=== PATIENT | male | born 1975 | race African-American/Black ===

== ENCOUNTER 2016-11-06 14:46 | Emergency (ER) ==
[2016-11-06 14:50] VITALS: BP 162/108; TEMP 98.2; BMI 32.3
--- NOTE | 2016-11-06 15:03 | ED.PDOC ---
General ED Provider: Dr. ALBIN TRAN Chief Complaint: Non-specific Complaint Stated Complaint: ABSCESS SCALP Time Seen by Physician: 14:50 Mode of Arrival: Walk-In Information Source: Patient Exam Limitations: No limitations Primary Care Provider: GARFIELD GILBERT Nursing and Triage Documentation Reviewed and Agree: Yes Skin Complaint Exam - Skin/Soft Tissue Complaint/Exam Symptoms Are: Still present Initial Severity: Moderate Character: Reports: Raised, Painful Aggravating: Reports: None Alleviating: Reports: None Associated Signs and Symptoms: Denies: Fever, Chills, Itching, Drainage, Bruising, Tenderness, Red streaks, Joint swelling Related History: Reports: Similar episode Related Surgical History: Reports: None Recent Exposure to Others w/Similar Symptoms: No Differential Diagnoses: Abscess Review of Systems - Review Of Systems Constitutional: Reports: No symptoms Eyes: Reports: No symptoms Ears, Nose, Mouth, Throat: Reports: No symptoms Respiratory: Reports: No symptoms Cardiac: Reports: No symptoms GI: Reports: No symptoms : Reports: No symptoms Musculoskeletal: Reports: No symptoms Skin: Reports: Other (ABSCESS SEE PHOTO) Neurological: Reports: No symptoms Endocrine: Reports: No symptoms Hematologic/Lymphatic: Reports: No symptoms All Other Systems: Reviewed and Negative Past Medical History - Past Medical History Previously Healthy: Yes Endocrine: Reports: None Cardiovascular: Reports: None Respiratory: Reports: None Hematological: Reports: None Gastrointestinal: Reports: None Genitourinary: Reports: None Neuro/Psych: Reports: None Musculoskeletal: Reports: None Cancer: Reports: None - Surgical History General Surgical History: Reports: None - Family History Family History: Reports: None - Social History Smoking Status: Current every day smoker Hx Substance Use: No Alcohol Screening: None Physical Exam - Physical Exam Appearance: Well-appearing, No pain distress, Well-nourished Eyes: BLANCA, EOMI, Conjunctiva clear ENT: Ears normal, Nose normal, Oropharynx normal Respiratory: Airway patent, Breath sounds clear, Breath sounds equal, Respirations nonlabored Cardiovascular: RRR, Pulses normal, No rub, No murmur GI/: Soft, Nontender, No masses, Bowel sounds normal, No Organomegaly Musculoskeletal: Normal strength, ROM intact, No edema, No calf tenderness Skin: Warm, Dry (4MM ABSCESS POSTERIOR SCALP) Neurological: Sensation intact, Motor intact, Reflexes intact, Cranial nerves intact, Alert, Oriented Psychiatric: Affect appropriate, Mood appropriate Critical Care Note - Critical Care Note Total Time (mins): 0 Course - Course Vital Signs: Temp Pulse Resp BP Pulse Ox 11/06/16 14:46 98.2 F 102 H 20 162/108 H 97 Departure - Departure Time of Disposition: 15:02 (PHOTO SUBMITTED ) Disposition: HOME SELF-CARE Discharge Problem: Abscess Instructions: Abscess (ED) Condition: Good Pt referred to PMD for follow-up: Yes Allergies/Adverse Reactions: Allergies No Known Allergies Allergy (Verified 11/06/16 14:50) Home Medications: Ambulatory Orders 1 [No Reported Medications] 05/19/13
== END 2016-11-06 15:17 | disposition home or self-care (01) ==
LOC: ED 14:46
DX: L02.811 Cutaneous abscess of head [any part, except face] (principal); F17.210 Nicotine dependence, cigarettes, uncomplicated
CPT/HCPCS: 99283

== ENCOUNTER 2016-12-25 17:10 | Emergency (ER) ==
[2016-12-25 17:14] VITALS: BP 154/81; TEMP 99.1; BMI 33.5
--- NOTE | 2016-12-25 17:36 | ED.PDOC ---
General ED Provider: Dr. ALBIN TRAN Chief Complaint: Abscess Stated Complaint: abscess left medial tigh Time Seen by Physician: 17:34 (seen with marimar at all times ) Information Source: Patient Exam Limitations: No limitations Primary Care Provider: GARFIELD GILBERT Nursing and Triage Documentation Reviewed and Agree: Yes Skin Complaint Exam - Skin/Soft Tissue Complaint/Exam Onset/Duration: 4 days Symptoms Are: Still present Timing: Constant Initial Severity: Severe Current Severity: Severe Character: Reports: Swelling, Raised, Painful Aggravating: Reports: Touch Alleviating: Reports: None Associated Signs and Symptoms: Reports: Tenderness. Denies: Fever, Chills, Itching, Drainage, Bruising, Red streaks, Joint swelling Related Surgical History: Reports: None Recent Exposure to Others w/Similar Symptoms: No Skin Findings: Present: Pustules Joint Tenderness Present: No Differential Diagnoses: Abscess, MRSA, VRE Review of Systems - Review Of Systems Constitutional: Reports: No symptoms Eyes: Reports: No symptoms Ears, Nose, Mouth, Throat: Reports: No symptoms Respiratory: Reports: No symptoms Cardiac: Reports: No symptoms GI: Reports: No symptoms : Reports: No symptoms Musculoskeletal: Reports: No symptoms Skin: Reports: Other (abscess ) Neurological: Reports: No symptoms Endocrine: Reports: No symptoms Hematologic/Lymphatic: Reports: No symptoms All Other Systems: Reviewed and Negative Past Medical History - Past Medical History Previously Healthy: Yes Endocrine: Reports: None Cardiovascular: Reports: None Respiratory: Reports: None Hematological: Reports: None Gastrointestinal: Reports: None Genitourinary: Reports: None Neuro/Psych: Reports: None Musculoskeletal: Reports: None Cancer: Reports: None - Surgical History General Surgical History: Reports: None - Family History Family History: Reports: None - Social History Smoking Status: Current every day smoker Hx Substance Use: No Alcohol Screening: None - Immunizations Tetanus Shot up to Date: Yes (less than 5 years.) Physical Exam - Physical Exam Appearance: Well-appearing Eyes: BLANCA, EOMI, Conjunctiva clear ENT: Ears normal, Nose normal, Oropharynx normal Respiratory: Airway patent, Breath sounds clear, Breath sounds equal, Respirations nonlabored Cardiovascular: RRR, Pulses normal, No rub, No murmur GI/: Soft, Nontender, No masses, Bowel sounds normal, No Organomegaly Musculoskeletal: Normal strength, ROM intact, No edema, No calf tenderness Skin: Warm, Dry ( abscess medial upper tigh PLEASE SEE SUBMITTED PHOTOS) Neurological: Sensation intact, Motor intact, Reflexes intact, Cranial nerves intact, Alert, Oriented Psychiatric: Affect appropriate, Mood appropriate Critical Care Note - Critical Care Note Total Time (mins): 0 Course - Course Vital Signs: Temp Pulse Resp BP Pulse Ox 12/25/16 17:10 99.1 F 113 H 16 154/81 H 98 Departure - Departure Time of Disposition: 17:37 Disposition: TSF SHORT-TRM HOSP Discharge Problem: Abscess Instructions: Abscess (ED) Condition: Good Pt referred to PMD for follow-up: Yes Additional Instructions: Please call your Family Physician as soon as possible to schedule a follow-up appointment. Allergies/Adverse Reactions: Allergies No Known Allergies Allergy (Verified 12/25/16 17:14) Home Medications: Ambulatory Orders 1 [No Reported Medications] 05/19/13 Disposition Discussed With: Patient
== END 2016-12-25 18:05 | disposition short-term general hospital (02) ==
LOC: ED 17:10
DX: L02.416 Cutaneous abscess of left lower limb (principal); F17.210 Nicotine dependence, cigarettes, uncomplicated
CPT/HCPCS: 99285

== ENCOUNTER 2017-09-27 01:26 | Emergency (ER) | payer OTHER ==
[2017-09-27] MEDS ORDERED: SODIUM CHLORIDE 1,000 ML IV STA (01:30)
--- NOTE | 2017-09-27 01:33 | ED.PDOC ---
General ED Provider: Dr. RACHELE GUZMAN Chief Complaint: Syncope Stated Complaint: patient had a syncopel episode tonight just prior to arrival. Admits to use of Meth but it has been few weeks. Time Seen by Physician: 01:32 Mode of Arrival: Attendant (dai) Information Source: Patient Exam Limitations: No limitations Primary Care Provider: GARFIELD GILBERT Nursing and Triage Documentation Reviewed and Agree: Yes Does patient meet sepsis criteria?: No System Inflammatory Response Syndrome: Not Applicable Sepsis Protocol: For patient's 13 years and over: Temp is 96.8 and below OR 101 and greater Pulse >90 BPM Resp >20/minute Acutely Altered Mental Status Are patient's symptoms suggestive of a new infection, such as: -Pneumonia -Skin, Soft Tissue -Endocarditis -UTI -Bone, Joint Infection -Implantable Device -Acute Abdominal Infection -Wound Infection -Meningitis -Blood Stream Catheter Infection -Unknown Neurological Complaint Exam - Syncope/Near Syncope Complaint/Exam Onset/Duration: 1 hour ago Symptoms Are: Resolved Number of Episodes: 1 Episodes Witnessed: Yes Loss of Consciousness: Yes Associated Head Trauma: No Activity at Onset: At rest Aggravating: Position change Alleviating: Reports: Spontaneous resolution Associated Signs and Symptoms: Reports: Dizziness, Headache (mild). Denies: Pain, Decreased oral intake, Vomiting, Diarrhea, GI blood loss, Short of air, Chest pain, Palpitations, Diaphoresis, Lightheadedness, Weakness, AMS, Numbness , Seizure, Remote head trauma, Recent head trauma Cardiac Risk Factors: Reports: None GI Bleed Risk Factors: Reports: None Related Surgical History: Reports: None JVD Present: No Carotid Bruit Present: No Rectal Heme Positive: No Glascow Coma Scale (see protocol): 15 Nystagmus Present: No Gag Reflex Present: No Meningeal Signs Positive: No Focal Weakness: Present: None Focal Sensory Loss: Present: None Gait: Normal [id number]: Normal Findings Romberg Test Positive: No Babinski Sign: Negative Right, Negative Left Heel to Toe Normal: Yes [place]-Hallpike Test Positive: No Differential Diagnoses: CAD, GA, CVA, TIA, Dysrhythmia, GI Bleed, Hypoglycemia, Hypovolemia, Metabolic Reaction, Vasovagal Episode Quality Indicator For Non-Traumatic Chest Pain/Syncope: EKG Performed Quality Indicators for AMI: EKG in 10min. Review of Systems - Review Of Systems Constitutional: Reports: No symptoms Eyes: Reports: No symptoms Ears, Nose, Mouth, Throat: Reports: No symptoms Respiratory: Reports: No symptoms Cardiac: Reports: Lightheadedness, Syncope. Denies: Chest pain GI: Reports: No symptoms : Reports: No symptoms Musculoskeletal: Reports: No symptoms Skin: Reports: No symptoms Neurological: Reports: Anxiety Endocrine: Reports: No symptoms Hematologic/Lymphatic: Reports: No symptoms All Other Systems: Reviewed and Negative Past Medical History - Past Medical History Previously Healthy: Yes Endocrine: Reports: None Cardiovascular: Reports: None Respiratory: Reports: None Hematological: Reports: None Gastrointestinal: Reports: None Genitourinary: Reports: None Neuro/Psych: Reports: None Musculoskeletal: Reports: None Cancer: Reports: None - Surgical History General Surgical History: Reports: None - Family History Family History: Reports: None - Social History Smoking Status: Current every day smoker Hx Substance Use: Yes (Methamphetamine use 3 week ago) Alcohol Screening: None Physical Exam - Physical Exam Appearance: Well-appearing, No pain distress, Well-nourished Eyes: BLANCA, EOMI, Conjunctiva clear ENT: Ears normal, Nose normal, Oropharynx normal Respiratory: Airway patent, Breath sounds clear, Breath sounds equal, Respirations nonlabored Cardiovascular: RRR, Pulses normal, No rub, No murmur GI/: Soft, Nontender, No masses, Bowel sounds normal, No Organomegaly Musculoskeletal: Normal strength, ROM intact, No edema, No calf tenderness Skin: Warm, Dry, Normal color Neurological: Sensation intact, Motor intact, Reflexes intact, Cranial nerves intact, Alert, Oriented Psychiatric: Affect appropriate, Mood appropriate Interpretation - Radiology Interpretation Radiology Interpretation By: Radiologist Radiology Results: Negative Exam Interpreted: CT Scan (head) - EKG Interpretation Time of EKG #1: 01:44 Rate: Normal Rhythm: Sinus Ectopy: None Critical Care Note - Critical Care Note Total Time (mins): 0 Comments: Orthostatics negative- blood pressures unchanged with position Course - Course Hematology/Chemistry: 09/27/17 01:40 09/27/17 01:40 Orders, Labs, Meds: Lab Review 09/27/17 09/27/17 01:40 01:40 WBC 7.47 RBC 5.29 Hgb 15.2 Hct 44.7 MCV 84.5 MCH 28.7 MCHC 34.0 RDW Coeff of Tory 13.4 Plt Count 273 Immature Gran % (Auto) 0.3 Neut % (Auto) 50.0 Lymph % (Auto) 38.8 [place] % (Auto) 9.2 Eos % (Auto) 1.2 Baso % (Auto) 0.5 Immature Gran # (Auto) 0.0 Neut # (Auto) 3.7 Lymph # (Auto) 2.9 [place] # (Auto) 0.7 Eos # (Auto) 0.1 Baso # (Auto) 0.0 Sodium 137 Potassium 4.2 Chloride 102 Carbon Dioxide 29 Anion Gap 10.2 BUN 9 Creatinine 0.90 Estimated GFR (MDRD) 112.00 BUN/Creatinine Ratio 10.00 Glucose 102 H Calcium 9.5 Total Bilirubin 0.2 AST 12 L ALT 14 Alkaline Phosphatase 75 Total Creatine Kinase 93 Troponin I < 0.0100 Total Protein 7.5 Albumin 3.6 Globulin 3.9 Albumin/Globulin Ratio 0.92 Orders Category Date Time Status EKG-(ED ONLY) Stat CARDIO 09/27/17 01:30 Ordered ED IV/MEDIPORT/POWERPORT .ONCE EMERGENCY 09/27/17 01:30 Active ED ORTHOSTATIC VITAL SIGNS .ONCE EMERGENCY 09/27/17 01:30 Active CBC W/ AUTO DIFF Stat LAB 09/27/17 01:40 Completed COMPREHENSIVE METABOLIC PANEL Stat LAB 09/27/17 01:40 Completed CREATINE KINASE Stat LAB 09/27/17 01:40 Completed TROPONIN I Stat LAB 09/27/17 01:40 Completed URINE DRUG SCREEN (RAPID FOR ED) [DRUG SCREEN, URINE, LAB 09/27/17 02:28 Ordered RAPID] Stat 0.9 % Sodium Chloride [Saline Flush] MEDS 09/27/17 01:30 Ordered 1 syr IVF PRN PRN Sodium Chloride 0.9% [Sodium Chloride] 1,000 ml MEDS 09/27/17 01:30 Active IV 125 mls/hr CT HEAD W/O CONTRAST Stat RADS 09/27/17 01:30 Completed Medications Generic Name Dose Route Start Last Admin Trade Name Freq PRN Reason Stop Dose Admin Sodium Chloride 1,000 mls @ 125 mls/hr 09/27/17 01:30 09/27/17 02:11 Sodium Chloride IV 09/27/17 09:29 125 mls/hr .Q8H STA Administration Sodium Chloride 1 syr 09/27/17 01:30 09/27/17 02:11 Saline Flush IVF 1 syr PRN PRN Administration To flush IV Vital Signs: Temp Pulse Resp BP Pulse Ox 09/27/17 01:45 93 H 169/124 H 09/27/17 01:44 88 152/108 H 09/27/17 01:43 78 144/95 H 09/27/17 01:27 97.9 F 78 20 170/110 H 99 Departure - Departure Time of Disposition: 03:15 Disposition: HOME SELF-CARE Discharge Problem: Vasovagal syncope Instructions: Syncope (ED) Condition: Stable Pt referred to PMD for follow-up: Yes IPMP verified?: No Additional Instructions: Push fluids Follow up with PCP in 3 days Allergies/Adverse Reactions: Allergies No Known Allergies Allergy (Verified 09/27/17 01:37) Home Medications: Ambulatory Orders 1 [No Reported Medications] 05/19/13 Disposition Discussed With: Patient
[2017-09-27 01:46] VITALS: TEMP 97.9; BMI 32.3
--- NOTE | 2017-09-27 02:18 | CT ---
EXAM: CT scan brain without contrast HISTORY: Syncope COMPARISON: CT scan brain 09/03/2011 FINDINGS: Contiguous axial images were obtained from the skull base to the convexities without contr ast utilizing 5-mm collimation. Sagittal and coronal reconstructions were imaged and reviewed.. The ventricles and CSF spaces are within normal limits. There are no acute intracranial findings. Visu alized paranasal sinuses and mastoid air cells are clear. IMPRESSION: No acute intracranial findings
[2017-09-27 03:44] VITALS: BP 135/91
== END 2017-09-27 03:41 | disposition home or self-care (01) ==
LOC: ED 01:26
DX: R55 Syncope and collapse (principal); R42 Dizziness and giddiness; R51 Headache; F17.210 Nicotine dependence, cigarettes, uncomplicated
CPT/HCPCS: 36415; 80053; 80306; 82550; 84484; 85025; 93005; 93010; 96360; 99283

== ENCOUNTER 2018-03-15 10:38 | Emergency (ER) ==
[2018-03-15 10:42] VITALS: TEMP 96.9; BMI 37.8
[2018-03-15] MEDS ORDERED: TORADOL IM STA (11:17)
--- NOTE | 2018-03-15 12:02 | ED.PDOC ---
General ED Provider: Dr. ALBIN TRAN Chief Complaint: Urinary Problem Stated Complaint: DYSURIA/ FLANK PAIN right sided traveling into right groin.pt has had these symptoms for 1 month but increased on Time Seen by Physician: 10:40 (SEEN WITH THE PT'S NURSE AT ALL TIMES , NO INJURY REPORTED ) Mode of Arrival: Walk-In Information Source: Patient, Family Exam Limitations: No limitations Primary Care Provider: ANETTE GREGG Nursing and Triage Documentation Reviewed and Agree: Yes Does patient meet sepsis criteria?: No System Inflammatory Response Syndrome: Not Applicable Sepsis Protocol: For patient's 13 years and over: Temp is 96.8 and below OR 101 and greater Pulse >90 BPM Resp >20/minute Acutely Altered Mental Status Are patient's symptoms suggestive of a new infection, such as: -Pneumonia -Skin, Soft Tissue -Endocarditis -UTI -Bone, Joint Infection -Implantable Device -Acute Abdominal Infection -Wound Infection -Meningitis -Blood Stream Catheter Infection -Unknown GI Complaint Exam - Abdominal Pain Complaint/Exam Onset: Gradual (1week but increased past 2 days) Duration: 2 days Symptoms Are: Still present Timing: Intermittent Initial Severity: Moderate Current Severity: Moderate Location of Pain: RLQ Radiates To: Reports: Flank (right) Character: Reports: Cramping Aggravating: Reports: None Alleviating: Reports: None Associated Signs and Symptoms: Reports: Dysuria. Denies: Diaphoresis, Fever, Cough, Chest pain, Dizziness, Back pain, Constipation, Blood in stool, Urinary frequency, Decreased urine output, Decreased appetite, Discharge, Nausea, Vomiting, Diarrhea, Decreased activity Related History: Reports: Similar episode (1 month) AAA Risk Factors: Reports: None Cardiac Risk Factors: Reports: None Testicular Torsion Risk Factors: Reports: None Surgical Obstruction Risk Factors: Reports: None Related Surgical History: Reports: None Abdominal Findings: Present: None Differential Diagnoses: Renal Colic Review of Systems - Review Of Systems Constitutional: Reports: No symptoms Eyes: Reports: No symptoms Ears, Nose, Mouth, Throat: Reports: No symptoms Respiratory: Reports: No symptoms Cardiac: Reports: No symptoms GI: Reports: No symptoms : Reports: Dysuria, Flank pain Musculoskeletal: Reports: No symptoms Skin: Reports: No symptoms Neurological: Reports: No symptoms Endocrine: Reports: No symptoms Hematologic/Lymphatic: Reports: No symptoms All Other Systems: Reviewed and Negative Past Medical History - Past Medical History Previously Healthy: Yes Endocrine: Reports: None Cardiovascular: Reports: None Respiratory: Reports: None Hematological: Reports: None Gastrointestinal: Reports: None Genitourinary: Reports: None Neuro/Psych: Reports: None Musculoskeletal: Reports: None Cancer: Reports: None - Surgical History General Surgical History: Reports: None - Family History Family History: Reports: None - Social History Smoking Status: Current every day smoker Hx Substance Use: Yes (Methamphetamine use 3 week ago) Alcohol Screening: None Physical Exam - Physical Exam Appearance: Well-appearing, No pain distress, Well-nourished Eyes: BLANCA, EOMI, Conjunctiva clear ENT: Ears normal, Nose normal, Oropharynx normal Respiratory: Airway patent, Breath sounds clear, Breath sounds equal, Respirations nonlabored Cardiovascular: RRR, Pulses normal, No rub, No murmur GI/: Soft, Nontender, No masses, Bowel sounds normal, No Organomegaly Musculoskeletal: Normal strength, ROM intact, No edema, No calf tenderness Skin: Warm, Dry, Normal color Neurological: Sensation intact, Motor intact, Reflexes intact, Cranial nerves intact, Alert, Oriented Psychiatric: Affect appropriate, Mood appropriate Re-Evaluation - Re-Evaluation Time of Re-Evaluation: 12:07 Status: Improved Vital Signs Stable: Yes Pain Level: 5 same location Appearance: NAD Lungs: Clear Skin: Warm and Dry Neuro: Alert and Oriented X3 CV: RRR Critical Care Note - Critical Care Note Total Time (mins): 0 Course - Course Hematology/Chemistry: 03/15/18 11:30 03/15/18 11:30 Orders, Labs, Meds: Lab Review 03/15/18 03/15/18 03/15/18 10:50 11:30 11:30 WBC 7.16 RBC 5.36 Hgb 16.0 Hct 46.5 MCV 86.8 MCH 29.9 MCHC 34.4 RDW Coeff of [place] 13.3 Plt Count 246 Immature Gran % (Auto) 0.1 Neut % (Auto) 52.4 Lymph % (Auto) 35.9 [place] % (Auto) 8.8 Eos % (Auto) 2.4 Baso % (Auto) 0.4 Immature Gran # (Auto) 0.0 Neut # (Auto) 3.8 Lymph # (Auto) 2.6 [place] # (Auto) 0.6 Eos # (Auto) 0.2 Baso # (Auto) 0.0 Sodium 137.1 Potassium 3.95 Chloride 102.2 Carbon Dioxide 28.3 Anion Gap 10.55 BUN 11.4 Creatinine 0.88 Estimated GFR (MDRD) 115.00 BUN/Creatinine Ratio 12.95 Glucose 97.3 Calcium 9.42 Total Bilirubin 0.45 AST 24.4 ALT 28.9 Alkaline Phosphatase 66.1 Total Protein 8.37 H Albumin 4.49 Globulin 3.88 Albumin/Globulin Ratio 1.15 Urine Color Yellow Urine Clarity Clear Urine pH 5.5 Ur Specific [place] 1.025 Urine Protein Negative Urine Glucose (UA) Negative Urine Ketones Negative Urine Blood Negative Urine Nitrite Negative Urine Bilirubin Negative Urine Urobilinogen 0.2 Ur Leukocyte Esterase Negative Orders Category Date Time Status ED IV/MEDIPORT/POWERPORT .ONCE EMERGENCY 03/15/18 11:16 Active CBC W/ AUTO DIFF Stat LAB 03/15/18 11:30 Completed COMPREHENSIVE METABOLIC PANEL Stat LAB 03/15/18 11:30 Completed URINALYSIS C & S IF INDICATED Stat LAB 03/15/18 10:50 Completed 0.9 % Sodium Chloride [Saline Flush] MEDS 03/15/18 11:16 Active 1 syr IVF PRN PRN Ketorolac Tromethamine [Toradol] MEDS 03/15/18 11:17 Discontinued 60 mg IM ONCE STA CT ABD/PEL WO RENAL STONE PROT Stat RADS 03/15/18 11:17 Completed ULTRASOUND SCROTUM [U/S SCROTUM] Stat RADS 03/15/18 12:14 Completed Medications Generic Name Dose Route Start Last Admin Trade Name Freq PRN Reason Stop Dose Admin Sodium Chloride 1 syr 03/15/18 11:16 Saline Flush IVF PRN PRN To flush IV Discontinued Medications Generic Name Dose Route Start Last Admin Trade Name Freq PRN Reason Stop Dose Admin Ketorolac Tromethamine 60 mg 03/15/18 11:17 03/15/18 11:37 Toradol IM 03/15/18 11:18 60 mg ONCE STA Administration Vital Signs: Temp Pulse Resp BP Pulse Ox 03/15/18 10:39 96.9 F L 50 L 20 166/122 H 96 Departure - Departure Time of Disposition: 13:50 Disposition: HOME SELF-CARE Discharge Problem: Urinary symptoms Instructions: Dysuria (ED) Condition: Good Pt referred to PMD for follow-up: Yes IPMP verified?: No Additional Instructions: Please call your Family Physician as soon as possible to schedule a follow-up appointment. Allergies/Adverse Reactions: Allergies No Known Allergies Allergy (Verified 03/15/18 10:42) Home Medications: Ambulatory Orders Hydrocodone/Acetaminophen [[place] 10-325 Tablet] 1 each PO Q8HR #7 tablet Disposition Discussed With: Patient, Family
--- NOTE | 2018-03-15 12:03 | CT ---
EXAM: CT abdomen pelvis without contrast HISTORY: Abdominal pain with right flank pain and prior cholecystectomy COMPARISON: None TECHNIQUE: Serial axial images of the abdomen pelvis were performed from the lung bases through the inferior pelvis without contrast. These were viewed in multiple planes. FINDINGS: Lung bases are clear. Evaluation is limited due to lack of contrast. The kidneys demonstrate no visualized stone or obstru ctive uropathy. The liver is unremarkable. The gallbladder has been resected. The adrenal glands a re normal. The spleen is unremarkable. The pancreas is normal. The stomach is distended. The small bowel in the abdomen and pelvis is unremarkable. The colon demonstrates a moderate amount of stool in the distal colon. There is non distension and diverticuli with minimal ground-glass invo lving the sigmoid colon. The colon is otherwise unremarkable. The appendix is normal. There is no free air or free fluid. There are few scattered mesenteric lymph nodes measuring up to 0.6 cm in mar meter. Urinary bladder is distended. Prostate is unremarkable. The osseous structures demonstrate degenerative disease of the spine. IMPRESSION: 1. No CT evidence of obstructive uropathy or visualized renal stone. 2. There is minimal thickening of the wall of the sigmoid colon with multiple diverticuli that may r epresent simple non distension versus mild early inflammation/infection. 3. Prior cholecystectomy. 4. Few scattered mesenteric lymph nodes are nonspecific and nonpathologically enlarged.
--- NOTE | 2018-03-15 12:55 | US ---
EXAM: Ultrasound scrotum and contents. HISTORY: Right scrotal pain. COMPARISON: None available. TECHNIQUE: Baeza-scale and color Doppler images. FINDINGS: The right testicle measures 4.4 x 2.5 x 4 cm. There is homogeneous echogenicity. Color-flow and vas cular waveforms are obtained although color flow is relatively sparse. This finding is symmetric in the right and left testicles. A simple right epididymal cyst measures 0.5 x 0.5 x 0.4 cm. There is a small amount of right scrotal fluid. The left testicle measures 4.9 x 3.1 x 3.4 cm. There is homogeneous echogenicity. Color-flow and va scular waveforms are obtained although color flow is relatively sparse. This finding is symmetric in the right and left testicles. Left epididymis is unremarkable. There is a small amount of left scr otal fluid. IMPRESSION: 1. No acute sonographic abnormality of the testes. Sparse color flow in both testicles may be due t o technical factors given the symmetry. If symptoms persist, short-term follow-up ultrasound would b e recommended. 2. Small bilateral hydroceles. 3. Simple right epididymal cyst.
[2018-03-15 13:59] VITALS: BP 138/91
== END 2018-03-15 13:59 | disposition home or self-care (01) ==
LOC: ED 10:38
DX: R30.0 Dysuria (principal); R10.9 Unspecified abdominal pain; F17.210 Nicotine dependence, cigarettes, uncomplicated
CPT/HCPCS: 36415; 74176; 80053; 81001; 85025; 96372; 99283